=== PATIENT | female | born 1995 | race Caucasian/White ===

== ENCOUNTER 2018-06-25 13:05 | Emergency (ER) | payer OTHER ==
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
[2018-06-25] MEDS ORDERED: LORazepam 1 MG TAB PO ONE (13:20)
[2018-06-25 15:20] VITALS: BP 129/70
== END 2018-06-25 15:20 | disposition home or self-care (01) ==
LOC: EDUNIT#
PROC: 0HQCXZZ Repair Left Upper Arm Skin, External Approach (ICD-10-PCS; principal; 2018-06-25)
DX: S41.112A Laceration without foreign body of left upper arm, initial encounter (principal); V49.50XA Passenger injured in collision with unspecified motor vehicles in traffic accident, initial encounter; Y92.410 Unspecified street and highway as the place of occurrence of the external cause